=== PATIENT | male | born 1965 | race African-American/Black ===

== ENCOUNTER 2018-07-12 09:25 | Outpatient (CLI) | payer BC ==
--- NOTE | 2018-07-12 11:42 | CT ---
CT ABDOMEN AND PELVIS PERFORMED WITH IV CONTRAST ENHANCEMENT: Date: 07/12/18 HISTORY: Microscopic hematuria. COMPARISON: None. FINDINGS: Lung bases are clear of any infiltrative process. The liver, spleen, pancreas, and gallbladder regions appear unremarkable. Right and left adrenal glands are normal in appearance. Right and left kidneys are normal in size. Ti ny calcification left renal pelvis is vascular and not related to the collecting system. No cyst or m asses. No significant periaortic or mesenteric adenopathy. CT of pelvis was performed with and without contrast enhancement. No adenopathy, mass, or free fluid. Bladder is in normal position. IMPRESSION: No evidence of renal calculi. No cysts or masses. POS: [facility]
== END 2018-07-12 09:26 | disposition home or self-care (01) ==
LOC: BICCT 09:25
PROVIDERS: ATTEND Urology
DX: R31.29 Other microscopic hematuria (principal)
CPT/HCPCS: 74178

== ENCOUNTER 2022-07-28 15:43 | Outpatient (CLI) | payer OTHER | END 2022-07-28 15:44 | disposition home or self-care (01) | LOC: BICCT 15:43 | PROVIDERS: ATTEND Nurse Practitioner Family | DX: Z12.2 Encounter for screening for malignant neoplasm of respiratory organs (principal); F17.210 Nicotine dependence, cigarettes, uncomplicated | CPT/HCPCS: 71271 ==

== ENCOUNTER 2023-09-26 15:55 | Outpatient (CLI) | payer OTHER | END 2023-09-26 15:56 | disposition home or self-care (01) | LOC: BICCT 15:55 | PROVIDERS: ATTEND Nurse Practitioner Family | DX: Z12.2 Encounter for screening for malignant neoplasm of respiratory organs (principal); F17.210 Nicotine dependence, cigarettes, uncomplicated | CPT/HCPCS: 71271 ==